=== PATIENT | female | born 1965 | race Caucasian/White ===

== ENCOUNTER 2021-08-12 10:35 | Outpatient (REF) | payer OTHER, SELFPAY ==
[2021-08-12 10:55] LABS: MANUAL DIFF FLAG NO
[2021-08-12 11:31] LABS: Basophils Percent Auto 0.7 % (0-2); Eosinophils Absolute Auto 0.1 X10*3/uL (0.0-0.4); Eosinophils Percent Auto 0.8 % (0-4); Hematocrit 41.6 % (37.0-47.0); Hemoglobin 14.2 g/dl (12.0-16.0); Imm Gran Abs Auto 0.02 X10*3/uL (0.00-0.03); Imm Gran Pct Auto 0.3 % (0.0-0.4); Lymphocytes Absolute Auto 1.4 X10*3/uL (1.2-4.9); Lymphocytes Percent Auto 23.8 % (20-40); Mean Corpuscular HGB Conc 34.1 g/dl (31.0-35.0); Mean Corpuscular Hemoglobin 31.7 pg (27.0-33.0); Mean Corpuscular Volume 92.9 fL (80.0-98.0); Mean Platelet Volume 9.5 fL (9.4-12.3); Monocytes Absolute Auto 0.6 X10*3/uL (0.1-1.2); Monocytes Percent Auto 9.4 % (2-11); Neutrophils Absolute Auto 3.9 x10*3/uL (2.0-8.3); Platelet Count 424 X10*3/uL (160-400); Red Blood Count 4.48 X10*6/uL (4.20-5.50); Red Cell Distribution Width 12.2 % (11.0-16.0)
[2021-08-12 11:52] LABS: Alanine Aminotransferase 12 U/L (0-31); Albumin Level 4.6 g/dL (3.5-5.0); Alkaline Phosphatase 81 U/L (39-117); Anion Gap 14 (12-20); Aspartate Amino Transferase 15 U/L (5-31); Bilirubin Total 0.9 mg/dL (0.0-1.0); Blood Urea Nitrogen 10 mg/dL (9-16); Calcium 9.6 mg/dL (8.4-10.2); Carbon Dioxide 29 mmol/L (22-29); Chloride 101 mmol/L (96-108); Cholesterol 189 mg/dL; Estimated Glomerular Filt Rate > 60; Glucose Fasting 104 mg/dL (60-99); HDL Cholesterol 64 mg/dL; LDL Cholesterol Calculated 113 mg/dl; Sodium 140 mmol/L (135-145); Total Protein 7.6 g/dL (6.5-8.0); Triglycerides 60 mg/dL
[2021-08-12 12:13] LABS: Vitamin D 25-OH Total 19.7 ng/mL (>30)
== END 2021-08-12 10:36 | disposition home or self-care (01) ==
LOC: HO.LAB 10:35
PROVIDERS: PCP Internal Medicine; Visit Provider Internal Medicine
DX: Z00.00 Encounter for general adult medical examination without abnormal findings (principal)
CPT/HCPCS: 36415; 80053; 80061; 82306; 85025

== ENCOUNTER 2021-08-31 14:11 | Outpatient (REF) | payer OTHER, SELFPAY ==
--- NOTE | ~2021-08-31 | MM_ITS ---
EXAMINATION: MM SCREENING DIGITAL BREAST TOMOSYNTHESIS, BILATERAL CLINICAL INFORMATION: Screening. Asymptomatic. The lifetime risk of breast cancer based on the Tyrer-Cuzick Model is 16%. COMPARISON: [place]). TECHNIQUE: Digital breast tomosynthesis is performed in both the craniocaudal and mediolateral oblique views along with computer-aided detection (CAD). Synthesized 2D images are generated from the tomosynthesis. FINDINGS: The breasts are heterogeneously dense, which may obscure small masses (ACR BI-RADS breast composition Category c). There are no significant masses, abnormal calcifications, or other abnormalities. Breast tissue composition borders on average fibroglandular. There is no architectural abnormality. The axilla and skin contours are unremarkable. MM/MM tomosynthesis screening BI IMPRESSION: No mammographic evidence of malignancy. ASSESSMENT: BI-RADS 1: Negative RECOMMENDATION: Routine annual mammography screening. This patient's information was entered into a reminder system with a target due date for their next mammogram.
--- NOTE | ~2021-08-31 | MM_ITS ---
EXAMINATION: BONE DENSITOMETRY CLINICAL INDICATION: Menopause. COMPARISON: This is the patient's baseline examination. TECHNIQUE: Using a [employer] DXA System (software version: 13.1) manufactured by [employer], dual-energy x-ray absorptiometry was performed of the lumbar spine and left hip. The images are of good technical quality. Summary results are attached. FINDINGS: AP SPINE L1-L3 (excluding L4): The data of L1-L4 has been changed to exclude the L4 vertebral body, because degenerative changes at this level may cause overestimation of lumbar spine density. BMD 0.895 g/cm2, Z-score -1.0, T-score -2.3, osteopenia. LEFT FEMUR, NECK: BMD 0.866 g/cm2, Z-score 0.1, T-score -1.2, osteopenia. LEFT FEMUR, TOTAL: BMD 0.847 g/cm2, Z-score -0.3, T-score -1.3, osteopenia. IDENTIFIED RISK FACTORS: Menopause. HISTORY OF FRACTURE: None listed. MEDICATIONS: Calcium supplements or multivitamin, vitamin D. MM/XR DEXA axial skeleton IMPRESSION: 1. DIAGNOSIS: Osteopenia based on the lowest T-score value of -2.3 in the lumbar spine applying World Health Organization criteria. 2. 10-YEAR FRACTURE RISK PREDICTION, FRAX: Major osteoporotic fracture (clinical spine, forearm, hip or shoulder) 6.9%. Hip fracture 0.5%. 3. Treatment Recommendations: NOF guidelines recommend consideration for treatment in postmenopausal women and men age 50 and older presenting with the following: -A hip or vertebral (clinical or morphometric) fracture. -T-score less than or equal to -2.5 at the femoral neck or spine after appropriate evaluation to exclude secondary causes. -Low bone mass at the hip or spine and a 10-year fracture probability by FRAX of greater than or equal to 3% for hip fracture or greater than or equal to 20% for major osteoporotic fracture based on the [place] adapted WHO algorithm. 4. Other Recommendations: All treatment decisions require clinical judgment and consideration of individual patient factors, including patient preferences, comorbidities, previous drug use, risk factors not captured in the FRAX model (e.g. frailty, falls, vitamin D deficiency, increased bone turnover, interval significant decline in bone density) and possible under or overestimation of fracture risk by FRAX. Additional medical evaluation for secondary cause of low bone mineral density may be appropriate. FUTURE SCAN RECOMMENDATION: People with diagnosed cases of osteoporosis or at high risk for fracture should have regular bone mineral density tests. For patients eligible for Medicare, routine testing is allowed once every 2 years. The testing frequency can be increased to one year for patients who have rapidly progressing disease, those who are receiving or discontinuing medical therapy to restore bone mass, or have additional risk factors.
== END 2021-08-31 14:12 | disposition home or self-care (01) ==
LOC: HO.MAMMO 14:11
PROVIDERS: PCP Internal Medicine; Visit Provider Internal Medicine
DX: Z12.31 Encounter for screening mammogram for malignant neoplasm of breast (principal); Z13.820 Encounter for screening for osteoporosis; Z78.0 Asymptomatic menopausal state
CPT/HCPCS: 77063; 77067; 77080

== ENCOUNTER → 2022-06-14 09:50 | Outpatient (BNVA) | payer OTHER, SELFPAY | PROVIDERS: PCP Internal Medicine; Visit Provider Orthopaedic Surgery | DX: G56.01 Carpal tunnel syndrome, right upper limb (principal) ==

== ENCOUNTER 2022-08-04 12:12 | Day surgery (SDC) | payer OTHER, SELFPAY ==
[2022-08-04 14:08] VITALS: BMI 23.9
--- NOTE | 2022-08-04 15:03 | MHC.SHP ---
Pre-Procedural Eval Section A Date of Service: 08/04/22 The patient is an INPATIENT: No Changes since office visit: No Cold of Flu in the past 2 weeks, No New Medical Problems, No Changes in Medication and No Patient answered all questions The History & Physical has been completed within 30 days and I have reviewed it.: Yes Section B Chief Complaint: Carpal tunnel syndrome, right upper limb Allergies: Allergies Allergy/AdvReac Type Severity Reaction Status Date / Time Penicillins Allergy hives Verified 06/14/22 10:01 Plan I have reviewed the history and physical and performed a pertinent physical examination on my patient. No changes have occurred unless specified. Time Spent With Patient Time: Total time managing care of this patient today ____ minutes.
--- NOTE | 2022-08-04 15:04 | W.PM.OPN ---
Operative Note Operative Note Date of Service: 08/04/22 Narrative: Preop diagnosis: 1. Right Carpal tunnel syndrome Postop diagnosis: same Procedure: 1. Right Carpal tunnel release Surgeon: Kaya Carcamo MD Anesthesia: local block using 1% lidocaine with epinephrine Findings: Thickened transverse carpal ligament. EBL: Less than 5 mL Specimens: None Complications: None Disposition: Brought to recovery room in stable condition Plan: Follow-up for 10-14 days for wound check and suture removal Indications: The patient is 57 years old, with right carpal tunnel syndrome that has been unresponsive to nonoperative management. The risks and benefits of operative treatment including but not limited to risk of damage to blood vessels, nerves, tendons, infection, persistent pain, persistent symptoms, or possible need for additional surgery were discussed with the patient and the patient wishes to proceed with surgery. Procedure: Once consent was obtained a local block was performed using a combination of 1% lidocaine with epinephrine. The patient was then brought back to the operating suite and placed on the operative table in supine position. The right upper extremity was prepped and draped in a standard surgical fashion. Once assured that we had a good block, a 2.0 cm longitudinal incision was made centered over the carpal tunnel. The incision was made through the skin to the subcutaneous tissues using a #15 blade. Dissection was made down to the level of the transverse carpal ligament with care being taken to protect the palmar cutaneous nerve. Once the transverse carpal ligament was clearly visualized, a longitudinal incision was made in the transverse carpal ligament 1st using a #15 blade, then using tenotomy scissors under direct visualization. Care was taken to look for and protect the motor branch of the median nerve when seen in this area. Once satisfied with our carpal tunnel release the wound was copiously irrigated with normal saline and hemostasis was obtained with a brief period of local pressure. The skin edges were reapproximated with some 5.0 nylon suture material and a sterile dressing was applied. The patient appears to have tolerated the procedure well and with no complications. All digits were well vascularized at the conclusion of the case.
[2022-08-04 15:46] VITALS: BP 155/86; PULSE 100; RESP 16; TEMP 37.4; O2SAT 95
== END 2022-08-04 16:11 | disposition home or self-care (01) ==
PROVIDERS: PCP Internal Medicine; Visit Provider Orthopaedic Surgery
PROC: (CPT 64721; principal; 2022-08-04 14:20)
DX: G56.01 Carpal tunnel syndrome, right upper limb (principal); R20.0 Anesthesia of skin; R20.2 Paresthesia of skin; Z88.0 Allergy status to penicillin; G20 Parkinson's disease; G24.9 Dystonia, unspecified; Z87.891 Personal history of nicotine dependence
CPT/HCPCS: 64721; J0171

== ENCOUNTER → 2022-08-17 09:46 | Outpatient (BNVA) | payer OTHER, SELFPAY | PROVIDERS: PCP Internal Medicine; Visit Provider Physician Assistant | DX: Z13.89 Encounter for screening for other disorder (principal) ==

== ENCOUNTER 2022-10-03 10:09 | Outpatient (REF) | payer OTHER, SELFPAY ==
--- NOTE | ~2022-10-03 | MM_ITS ---
EXAMINATION: MM SCREENING DIGITAL BREAST TOMOSYNTHESIS, BILATERAL CLINICAL INFORMATION: Screening. Asymptomatic. The lifetime risk of breast cancer based on the Tyrer-Cuzick Model is 18.3%. COMPARISON: Mammography: August 31, 2021 and studies dating back to December 14, 2018 TECHNIQUE: Digital breast tomosynthesis is performed in both the craniocaudal and mediolateral oblique views along with computer-aided detection (CAD). Synthesized 2D images are generated from the tomosynthesis. FINDINGS: The breasts are heterogeneously dense, which may obscure small masses (ACR BI-RADS breast composition Category c). There are no significant masses, abnormal calcifications, or other abnormalities. MM/MM tomosynthesis screening BI IMPRESSION: No significant changes from prior exam. ASSESSMENT: BI-RADS 1: Negative RECOMMENDATION: Routine annual mammography screening. This patient's information was entered into a reminder system with a target due date for their next mammogram.
== END 2022-10-03 10:10 | disposition home or self-care (01) ==
LOC: HO.MAMMO 10:09
PROVIDERS: PCP Internal Medicine; Visit Provider Internal Medicine
DX: Z12.31 Encounter for screening mammogram for malignant neoplasm of breast (principal)
CPT/HCPCS: 77063; 77067

== ENCOUNTER 2023-03-28 16:49 | Emergency (ER) | payer OTHER, SELFPAY ==
[2023-03-28 18:09] VITALS: BP 149/78; PULSE 97; RESP 16; TEMP 37.6; O2SAT 100; BMI 25.0
--- NOTE | 2023-03-28 18:10 | ED.SKABFB ---
HPI - Skin/Abscess/Foreign Bdy General Chief complaint: Fall Stated complaint: Laceration on forehead Time Seen by Provider: 03/28/23 19:30 Source: patient Mode of arrival: ambulatory Limitations: no limitations History of Present Illness HPI narrative: Patient is a 57-year-old female who presents emergency department with her sister for evaluation after head injury. Reportedly at approximately 06:00 o'clock this morning she accidentally tripped over her cats and struck her head against the corner of a wall. She denies any loss of consciousness. She endorsed a mild headache earlier today which has resolved. She is unaware of the date of her last tetanus vaccination. She sustained a laceration to the midline of her forehead. Bleeding is currently controlled. She denies the use of anticoagulants. She denies current headache, neck pain, vision changes, dizziness, lightheadedness, numbness or tingling of the extremities, weakness Related Data Home Medications Medication Instructions Recorded Confirmed carbidopa 25 mg tablet 25 mg PO BID 06/14/22 carbidopa 25 mg-levodopa 100 mg 2 tab PO BID 06/14/22 tablet gabapentin 300 mg capsule 300 mg PO BEDTIME 06/14/22 pramipexole 0.5 mg tablet mg PO 06/14/22 selegiline HCl 5 mg tablet 5 mg PO BID 06/14/22 Previous Rx's Medication Instructions Recorded oxycodone-acetaminophen 5 mg-325 1 tab PO Q6H PRN pain #5 tabs 08/04/22 mg tablet Allergies Allergy/AdvReac Type Severity Reaction Status Date / Time Penicillins Allergy hives Verified 06/14/22 10:01 Review of Systems Review of Systems: Yes all other systems are reviewed and are negative [facility] Past Medical History Attestation statement: The following information was validated with the patient. Source: old records reviewed Medical History Parkinsons disease Social History Social History Patient Tobacco Use Status: Former Tobacco user Advance Directives: No Advance Directives Information Provided: No Current occupation: preschool, rt hand Physical Exam Vital Signs: Vital Signs: Last Vital Signs Temp 98.8 F 03/28/23 19:07 Pulse 90 03/28/23 19:07 Resp 18 03/28/23 19:07 BP 145/71 H 03/28/23 19:07 Pulse Ox 98 03/28/23 19:07 O2 Del Method Room Air 03/28/23 19:07 BMI result Body Mass Index 25.0 Appearance: Alert.?Oriented to person, place and time. No acute distress.?Normal affect. Eyes: Pupils equal, round and reactive to light.? EOMI. No nystagmus. ENT: Pharynx normal.??TM normal bilaterally. Normal dentition. No septal hematoma. Neck: Normal inspection.? Neck supple.??No cervical spine tenderness, step-offs, deformities. CVS: Heart sounds normal. Normal heart rate and rhythm.? Pulses normal.?? Respiratory: No respiratory distress.? Lung sounds clear to auscultation bilaterally?? Abdomen: Soft and non-tender. Normoactive bowel sounds.? Skin: Skin warm and dry.? Normal skin color.? Extremities: No lower extremity edema.? 3.5 cm linear laceration to the mid forehead extending down from the scalp, bleeding controlled, edges are well approximated Neuro: Moves all extremities spontaneously. Sensation intact bilaterally. CN II-XII intact. No focal neuro deficits. Ambulates with baseline gait/unsteadiness secondary to Parkinson's Course Course Course Narrative: This is an RME: Additional HPI, ROS, PE not included below will be deferred to primary provider. This is a [id number], with a history of Parkinson's, presenting to the emergency department, accompanied by sister, with a complaint of head strike which occurred at 6:00 a.m. this morning. Patient reports that she was causing my cats and tripped and struck her head on to the corner of a wall. This head strike was unwitnessed, she denies any loss of consciousness. Patient unsure when her last tetanus was. Patient 3.5 cm partial thickness laceration to the forehead Plan: CT head, tdap, wound repair Medications Administered Discontinued Medications Generic Name Dose Route Start Last Admin Trade Name Freq PRN Reason Stop Dose Admin Diphtheria/Tetanus/Acell Pertussis 0.5 ml 03/28/23 18:16 03/28/23 19:33 Diphth,Pertus(Acell),Tet Adult 0.5 Ml Syringe IM 03/28/23 18:17 0.5 ml .ONCE ONE Administration Medical Decision Making Medical Decision Making [facility] Narrative: Patient is a 57-year-old female presenting to emergency department for evaluation of laceration s/p head injury without loss of consciousness. She has no focal neurological deficits upon my evaluation. A CT scan was obtained prior to my assessment which reveals no acute intracranial abnormalities. She has no midline cervical spine tenderness to suggest possible fracture traumatic subluxation. Her wound was cleansed extensively, the edges are very well approximated without applying any pressure. I discussed with patient repair with sutures for closure, she feels strongly about not having sutures. Given that the edges do approximate very well even without pressure, I did discuss with her alternatively that we could use skin adhesive and Steri-Strips as she is declining sutures. She agrees with that plan of care. Both her and her sister feel comfortable with discharge home. Discussed worrisome signs and symptoms that would warrant re-evaluation in the emergency department. Advised outpatient follow-up with primary care provider. All questions answered. Stable for discharge. Differential Diagnosis Differential Diagnoses: The differential diagnosis associated with the presentation includes (Fracture, subluxation, SDH, ICH, laceration, uncontrolled bleeding) Admission/Observation Consideration of admission/observation: Escalation of care including admission/observation considered (I considered admission for head injury, see narrative above for further detail.) Radiology Impression Discussion of test interpretation with radiology: I have reviewed the radiologist's reading. Radiologist Impression: CT/CT head/brain wo IV con IMPRESSION: No acute intracranial pathology. Independent Historian Clinical information obtained from an independent historian. History obtained from or confirmed by: Other (Sister present at bedside who confirms history.) External Record Review External record reviewed: Outpatient record Prescription Management I considered prescription management with: Pain Medication (Acetaminophen) Chronic Conditions Patient?s care impacted by: Other (Parkinson's) Discharge Plan Discharge Clinical Impression: Acute head injury without loss of consciousness, Forehead laceration Patient Disposition: Home, Self-Care Instructions: Skin Adhesive Care (ED), Steristrips (ED) Prescriptions: No Action oxycodone-acetaminophen 5-325 mg tablet 1 tab PO Q6H PRN (Reason: pain) Qty: 5 0RF Rx Instructions: Partial Fill upon patient request. carbidopa 25 mg tablet 25 mg PO BID pramipexole 0.5 mg tablet PO gabapentin 300 mg capsule 300 mg PO BEDTIME carbidopa-levodopa 25-100 mg tablet 2 tab PO BID selegiline HCl 5 mg tablet 5 mg PO BID Referrals: Physician,Unknown J [Primary Care Provider] -
[2023-03-28 19:07] VITALS: BP 145/71; PULSE 90; RESP 18; TEMP 37.1; O2SAT 98
== END 2023-03-28 21:50 | disposition home or self-care (01) ==
PROVIDERS: Emergency Provider Emergency Medicine
DX: S00.81XA Abrasion of other part of head, initial encounter (principal); R51.9 Headache, unspecified; W01.10XA Fall on same level from slipping, tripping and stumbling with subsequent striking against unspecified object, initial encounter; Y93.9 Activity, unspecified; Y92.009 Unspecified place in unspecified non-institutional (private) residence as the place of occurrence of the external cause; Y99.9 Unspecified external cause status; Z79.899 Other long term (current) drug therapy; Z23 Encounter for immunization
CPT/HCPCS: 12052; 70450; 90471; 90715; 99282; 99284

== ENCOUNTER 2023-08-08 11:41 | Outpatient (REF) | payer OTHER, SELFPAY ==
[2023-08-08 13:26] LABS: MANUAL DIFF FLAG NO
[2023-08-08 13:38] LABS: Basophils Absolute Auto 0.1 X10*3/uL (0.0-0.2); Basophils Percent Auto 0.9 % (0-2); Eosinophils Absolute Auto 0.1 X10*3/uL (0.0-0.4); Eosinophils Percent Auto 1.6 % (0-4); Hematocrit 40.7 % (37.0-47.0); Hemoglobin 13.5 g/dl (12.0-16.0); Imm Gran Abs Auto 0.01 X10*3/uL (0.00-0.03); Imm Gran Pct Auto 0.1 % (0.0-0.4); Lymphocytes Absolute Auto 1.5 X10*3/uL (1.2-4.9); Lymphocytes Percent Auto 19.5 % (20-40); Mean Corpuscular HGB Conc 33.2 g/dl (31.0-35.0); Mean Corpuscular Hemoglobin 31.8 pg (27.0-33.0); Mean Corpuscular Volume 95.8 fL (80.0-98.0); Mean Platelet Volume 9.1 fL (9.4-12.3); Monocytes Absolute Auto 0.6 X10*3/uL (0.1-1.2); Monocytes Percent Auto 8.2 % (2-11); Neutrophils Absolute Auto 5.3 x10*3/uL (2.0-8.3); Neutrophils Percent Auto 69.7 % (45-73); Platelet Count 461 X10*3/uL (160-400); Red Blood Count 4.25 X10*6/uL (4.20-5.50); Red Cell Distribution Width 12.5 % (11.0-16.0); White Blood Count 7.6 X10*3/uL (4.8-10.8)
[2023-08-08 14:13] LABS: Alanine Aminotransferase < 5 U/L (0-31); Albumin Level 4.4 g/dL (3.5-5.0); Alkaline Phosphatase 74 U/L (39-117); Anion Gap 14 (12-20); Aspartate Amino Transferase 12 U/L (5-31); Bilirubin Total 0.5 mg/dL (0.0-1.0); Blood Urea Nitrogen 16 mg/dL (9-16); Calcium 8.9 mg/dL (8.4-10.2); Carbon Dioxide 28 mmol/L (22-29); Chloride 103 mmol/L (96-108); Cholesterol 188 mg/dL (<200); Estimated Glomerular Filt Rate > 60; Glucose Random 75 mg/dL (60-115); Potassium 3.8 mmol/L (3.3-5.1); Sodium 141 mmol/L (135-145); Total Protein 7.4 g/dL (6.5-8.0)
[2023-08-08 14:15] LABS: Free T4 (Free Thyroxine) 0.95 ng/dL (0.71-1.85); Thyroid Stimulating Hormone 1.55 uIU/mL (0.32-4.0)
== END 2023-08-08 11:42 | disposition home or self-care (01) ==
LOC: HO.10HDL 11:41
PROVIDERS: Visit Provider Internal Medicine
DX: E55.9 Vitamin D deficiency, unspecified (principal); R63.5 Abnormal weight gain; G20.A1 Parkinson's disease without dyskinesia, without mention of fluctuations
CPT/HCPCS: 36415; 80053; 82306; 82465; 84439; 84443; 85025

== ENCOUNTER → 2023-10-06 10:00 | Outpatient (BNV) | payer OTHER, SELFPAY | PROVIDERS: PCP Internal Medicine; Visit Provider Radiology Diagnostic Radiology | DX: Z12.31 Encounter for screening mammogram for malignant neoplasm of breast (principal) | CPT/HCPCS: 77063; 77067 ==

== ENCOUNTER 2023-10-06 10:02 | Outpatient (REF) | payer OTHER, SELFPAY ==
--- NOTE | ~2023-10-06 | MM_ITS ---
EXAMINATION: MM SCREENING DIGITAL BREAST TOMOSYNTHESIS, BILATERAL CLINICAL INFORMATION: Screening. Asymptomatic. COMPARISON: Mammography: This study is compared with prior exams dating back to 2021. TECHNIQUE: Digital breast tomosynthesis is performed in both the craniocaudal and mediolateral oblique views along with computer-aided detection (CAD). Synthesized 2D images are generated from the tomosynthesis. FINDINGS: The breasts are heterogeneously dense, which may obscure small masses (ACR BI-RADS breast composition Category c). There are no significant masses, abnormal calcifications, or other abnormalities. MM/MM tomosynthesis screening BI IMPRESSION: No mammographic evidence of malignancy. ASSESSMENT: BI-RADS BI-RADS 1 - Negative RECOMMENDATION: Routine annual mammography screening. 1 year F/U This examination should not preclude the clinical evaluation of a suspicious palpable abnormality. This patient's information was entered into a reminder system with a target due date for their next mammogram.
== END 2023-10-06 10:03 | disposition home or self-care (01) ==
LOC: HO.MAMMO 10:02
PROVIDERS: PCP Internal Medicine; Visit Provider Internal Medicine
DX: Z12.31 Encounter for screening mammogram for malignant neoplasm of breast (principal)
CPT/HCPCS: 77063; 77067

== ENCOUNTER 2024-03-29 17:39 | Outpatient (REF) | payer OTHER, SELFPAY ==
[2024-03-29 18:08] LABS: Appearance Urine Cloudy; Color Urine Dark Yellow; Glucose Urine UA Negative (Negative); Leukocyte Esterase Urine Moderate (2+) (Negative); Nitrite Urine Positive (Negative); PH 5.5 (5.0-9.0); Specific Gravity - Urine 1.025 (1.005-1.025); UMIC TRIGGER UA YES; Urine Blood Trace (Negative); Urine Ketones Trace mg/dL (Negative); Urine Protein Trace mg/dL (Neg-Trace)
[2024-03-29 18:27] LABS: Bacteria Urine 4+ (None Seen); Calcium Oxalate Crystals Urine Present; Hyaline Casts Urine 0-2 /LPF (0-2); RBC Urine 0-2 /HPF (0-2); Squamous Epithelial Cell Urine 0-2 /HPF (0-2)
== END 2024-03-29 17:40 | disposition home or self-care (01) ==
LOC: HO.LNP 17:39
PROVIDERS: Visit Provider Internal Medicine
DX: R30.0 Dysuria (principal)
CPT/HCPCS: 81001

== ENCOUNTER 2024-04-11 14:53 | Outpatient (RCR) | payer OTHER, SELFPAY | END 2024-07-26 15:57 | disposition home or self-care (01) | LOC: HO.PT 14:53 | PROVIDERS: PCP Internal Medicine; Visit Provider Psychiatry & Neurology Neurology | DX: G20.B2 Parkinson's disease with dyskinesia, with fluctuations (principal) ==

== ENCOUNTER 2025-05-18 15:57 | Emergency (ER) | payer MEDICAID, SELFPAY ==
--- NOTE | ~2025-05-18 | CT_ITS ---
CLINICAL HISTORY: fall, trauma CT head without contrast Comparison: CT/PA/SR - CT HEAD/BRAIN WO IV CON - 03/28/23 18:33 EDT Findings: Bilateral bifrontal intra-axial neurostimulator leads extending up to the left and right thalami. No significant atrophy-like change or white matter disease. There is no sinus or mastoid fluid. The orbits are within normal limits. No skull fracture. Craniotomy sites for the aforementioned neurostimulator leads in the left and right frontal calvarium bones. IMPRESSION: 1. Interval placement of bilateral bifrontal intra-axial neurostimulator leads extending to the left and right thalami. 2. No acute intracranial findings. This document has been electronically signed by: Shane aWldrop MD on 05/18/2025 20:42:06
--- NOTE | ~2025-05-18 | CT_ITS ---
CLINICAL HISTORY: trauma, pain CT cervical spine without contrast Comparison: None provided Findings: C3-4: Grade 1 anterolisthesis C3 over C4. C5-6: Moderate to severe DJD. Mild anterior spondylosis. Mild osteopenia. No acute findings on limited view of the intracranial contents. No cervical fluid collections or masses. No consolidation or effusion at the lung apices. Right posterior temporal region subcutaneous leads x2 extending into the right soft tissue neck. IMPRESSION: 1. Grade 1 anterolisthesis of C3 over C4. 2. Moderate to severe degenerative joint disease at C5-C6 with mild anterior spondylosis. 3. Mild osteopenia. 4. No acute cervical spine findings. This document has been electronically signed by: Shane Waldrop MD on 05/18/2025 20:31:36
--- NOTE | ~2025-05-18 | XR_ITS ---
CLINICAL HISTORY: trauma, pain 3 view left shoulder Comparison: None provided Findings: Mild osteopenia. Distal left clavicular comminuted fracture, proximal to the acromial facet. No significant loss of joint space or osteophytes. No erosions. No radiopaque foreign body. IMPRESSION: 1. Distal left clavicular comminuted fracture, proximal of the acromial facet of the clavicle. 2. Mild osteopenia. This document has been electronically signed by: Shane Waldrop MD on 05/18/2025 21:02:31
--- NOTE | ~2025-05-18 | CT_ITS ---
CLINICAL HISTORY: fall worse pain over the left shoulder CT chest without contrast Comparison: None provided Findings: Calcified coronary atherosclerotic disease. Right anterior implanted neurostimulator device with 2 leads extending into the right anterior soft tissue neck. No consolidation or effusion. The visualized upper abdomen is unremarkable. Left distal clavicular fracture. Left lateral 3rd, 4th, 5th, 6th, 7th rib fractures. Mild osteopenia. IMPRESSION: 1. Left distal clavicular fracture. 2. Left lateral 3rd, 4th, 5th, 6th, and 7th rib fractures. 3. Right anterior implanted neurostimulator device with leads extending into the right anterior neck soft tissue. 4. Calcified coronary atherosclerotic disease. This document has been electronically signed by: Shane Waldrop MD on 05/18/2025 20:35:17
--- NOTE | ~2025-05-18 | CT_ITS ---
CLINICAL HISTORY: fall CT abdomen and pelvis without contrast Comparison: None provided Findings: No consolidation or effusion. Left renal of the posterior 0.2 cm nonobstructing nephrolith. No bowel obstruction, pneumoperitoneum, or pneumatosis. Calcified coronary atherosclerotic disease. Mild calcified atherosclerotic disease abdominal aorta. The appendix is within normal limits. No acute fracture. Mild osteopenia. IMPRESSION: 1. 0.2 cm nonobstructing left renal nephrolith. 2. Calcified coronary and abdominal aortic atherosclerotic disease. 3. No acute intraabdominal or pelvic pathology. This document has been electronically signed by: Shane Waldrop MD on 05/18/2025 20:32:56
[2025-05-18 16:29] VITALS: BP 97/55; PULSE 84; RESP 16; TEMP 36.4; O2SAT 97; BMI 49.8
--- NOTE | 2025-05-18 16:33 | ED.GENADULT ---
HPI - General Adult General Chief complaint: Fall Stated complaint: fell and hit head Time Seen by Provider: 05/18/25 17:06 Related Data Home Medications ?Medication ?Instructions ?Recorded ?Confirmed carbidopa 25 mg tablet 25 mg PO BID 06/14/22 carbidopa 25 mg-levodopa 100 mg 2 tab PO BID 06/14/22 tablet gabapentin 300 mg capsule 300 mg PO BEDTIME 06/14/22 pramipexole 0.5 mg tablet mg PO 06/14/22 selegiline HCl 5 mg tablet 5 mg PO BID 06/14/22 Previous Rx's ?Medication ?Instructions ?Recorded oxycodone-acetaminophen 5 mg-325 1 tab PO Q6H PRN pain #5 tabs 08/04/22 mg tablet Allergies Allergy/AdvReac Type Severity Reaction Status Date / Time Penicillins Allergy hives Verified 05/18/25 16:36 [facility] Past Medical History Medical History Parkinsons disease Social History Social History Patient Tobacco Use Status: Former Tobacco user Smoked in Last 30 Days: No Use of substances other than those prescribed or required for medical reasons: No Advance Directives: Yes Advance Directives Information Provided: No Advance Directives on File: No Patient : No Current occupation: preschool, rt hand Physical Exam ED Vital Signs: Vital Signs - 24 hr 05/18/25 16:29 05/18/25 17:55 05/18/25 20:05 Temperature 97.5 F 97.6 F 98.1 F Pulse Rate 84 87 90 Respiratory Rate 16 16 16 Blood Pressure 97/55 L 128/66 147/80 H Pulse Oximetry 97 97 97 Oxygen Delivery Method Room Air Room Air Room Air BMI result Body Mass Index 49.8 Course Course Course Narrative: Medical screening exam performed. Please refer to detailed history, exam, evaluation, and management by primary provider. Limited exam, family at bedside. Patient fell down 7 stairs. Struck head. No LOC. Check labs and imaging. cervical collar placed. Medications Administered Discontinued Medications Generic Name Dose Route Start Last Admin Trade Name Freq PRN Reason Stop Dose Admin Sodium Chloride 1,000 mls @ 999 mls/hr 05/18/25 19:45 05/18/25 20:16 Ns IV 05/18/25 20:45 999 mls/hr .Q1H1M JOSE GUADALUPE Administration Medical Decision Making Medical Decision Making MDM Narrative: Please see the other medical record Lab Data 05/18/25 17:07 05/18/25 17:07 Labs: Lab Results 05/18/25 05/18/25 Range/Units 17:07 19:53 WBC 20.3 H (4.8-10.8) X10*3/uL RBC 4.00 L (4.20-5.50) X10*6/uL Hgb 12.6 (12.0-16.0) g/dl Hct 37.6 (37.0-47.0) % MCV 94.0 (80.0-98.0) fL MCH 31.5 (27.0-33.0) pg MCHC 33.5 (31.0-35.0) g/dl RDW 14.6 (11.0-16.0) % Plt Count 373 (160-400) X10*3/uL MPV 9.8 (9.4-12.3) fL Immature Gran % (Auto) 0.6 H (0.0-0.4) % Neut % (Auto) 91.4 H (45-73) % Lymph % (Auto) 2.1 L (20-40) % Scre[place] % (Auto) 5.6 (2-11) % Eos % (Auto) 0.0 (0-4) % Baso % (Auto) 0.3 (0-2) % Lymph # (Auto) 0.4 L (1.2-4.9) X10*3/uL Screven # (Auto) 1.1 (0.1-1.2) X10*3/uL Eos # (Auto) 0.0 (0.0-0.4) X10*3/uL Baso # (Auto) 0.1 (0.0-0.2) X10*3/uL Abs Immat Gran (auto) 0.13 H (0.00-0.03) X10*3/uL Absolute Neuts (auto) 18.5 H (2.0-8.3) x10*3/uL Absolute Nucleated RBC 0.000 (0.0-0.012) X10*3/uL Nucleated RBC % (auto) 0.0 (0.0-0.2) /100WBC Smear Tech's Comments VERIFIED Sodium 143 (135-145) mmol/L Potassium 3.7 (3.3-5.1) mmol/L Chloride 106 (96-108) mmol/L Carbon Dioxide 26 (22-29) mmol/L Anion Gap 15 (12-20) BUN 18 H (9-16) mg/dL Creatinine 0.59 (0.5-1.4) mg/dL Estim Creat Clear Calc 142.9 Estimated GFR > 60 Random Glucose 103 (60-115) mg/dL Lactic Acid 0.8 (0.5-2.0) mmol/L Calcium 9.2 (8.4-10.2) mg/dL Total Bilirubin 0.6 (0.0-1.0) mg/dL AST 25 (5-31) U/L ALT < 6 (0-31) U/L Alkaline Phosphatase 85 (39-117) U/L Total Protein 6.8 (6.5-8.0) g/dL Albumin 4.5 (3.5-5.0) g/dL Discharge Plan Discharge Clinical Impression: Head injury, Closed rib fracture, Clavicle fracture Patient Disposition: [facility] Transfer Details: [facility] Prescriptions: No Action oxycodone-acetaminophen 5-325 mg tablet 1 tab PO Q6H PRN (Reason: pain) Qty: 5 0RF Rx Instructions: Partial Fill upon patient request. carbidopa 25 mg tablet 25 mg PO BID pramipexole 0.5 mg tablet PO gabapentin 300 mg capsule 300 mg PO BEDTIME carbidopa-levodopa 25-100 mg tablet 2 tab PO BID selegiline HCl 5 mg tablet 5 mg PO BID Print Language: Pashto
--- NOTE | 2025-05-18 16:35 | ECG_ITS ---
Test Reason : FALL Blood Pressure : */* mmHG Vent. Rate : 82 BPM Atrial Rate : 82 BPM P-R Int : 164 ms QRS Dur : 94 ms QT Int : 404 ms P-R-T Axes : 62 -9 21 degrees QTcB Int : 472 ms Normal sinus rhythm Incomplete right bundle branch block Borderline ECG No previous ECGs available Referred By: Fausto Oshea Electronically Signed By: KASI SALAS
--- NOTE | 2025-05-18 16:39 | PC.NURSE ---
Pt collared in triage and brought into ED2 placed on monitor at this time
[2025-05-18 17:18] LABS: Hematocrit 37.6 % (37.0-47.0); Hemoglobin 12.6 g/dl (12.0-16.0); Imm Gran Abs Auto 0.13 X10*3/uL (0.00-0.03); Imm Gran Pct Auto 0.6 % (0.0-0.4); Lymphocytes Absolute Auto 0.4 X10*3/uL (1.2-4.9); MANUAL DIFF FLAG SCAN; Mean Corpuscular HGB Conc 33.5 g/dl (31.0-35.0); Mean Corpuscular Hemoglobin 31.5 pg (27.0-33.0); Mean Corpuscular Volume 94.0 fL (80.0-98.0); NRBC Abs Auto 0.000 X10*3/uL (0.0-0.012); NRBC Pct Auto 0.0 /100WBC (0.0-0.2); Platelet Count 373 X10*3/uL (160-400); Red Blood Count 4.00 X10*6/uL (4.20-5.50); SCAN SMEAR FLAG 1; White Blood Count 20.3 X10*3/uL (4.8-10.8)
--- OUTSIDE RECORDS SUMMARY | 2025-05-18 17:21 | XMS_ITS | Encounter Summary ---
Author Organization [facility] Address [address] [place] [address] Care Team Providers Care Lace Sewer Name Role Phone Zuleyka Moreno MD Primary Care Provider [phone] Encounter Details Date Type Department Care Team (Late st Contact Info) Description 08/12/2024 Telephone [facility] [address] [place] [address] Benito Edward MD [address] [place] [address] Social History Tobacco Use Types Packs/Day Years Used Date Smoking Tobacco: Former Cigarettes Smokeless Tobacco: Never Comments:Smokes in 20s Alcohol Use Standard Drinks/Week Comments Not Currently 0 (1 standard drink = 0.6 oz pur e alcohol) occassional Comments No Sex and Gender Information Value Date Recorded Sex Assigned at Female 04/07/2023 11:19 AM EDT Legal Sex Female 4:28 PM EDT Gender Identity Female 04/07/2023 11:19 AM EDT Sexual Orientation Choose not to disclose 2022 11:19 AM EDT documented as of this encounter Miscellaneous Notes * Telephone Encounter - Abby Ochoa - 08/12/2024 8:15 AM EST Called pt and informed her that [facility] does not accept [facility] documented in this encounter Plan of Treatment Upcoming Encounters Date Type Department Care Team (Late st Contact Info) Description 06/24/2025 10:00 AM EST Office Visit [facility] [address] [place] [id number] Arminda Newsome NP [address] [place] [id number] 10/16/2025 10:30 AM EDT Procedure visit [facility] [address] [place] [id number] Benito Edward MD [address] [place] [id number] documented as of this encounter Visit Diagnoses Not on filedocumented in this encounter Care Teams Lace Sewer Relationship Specialty Start Date End Date Zuleyka Moreno MD [address] [place] [phone] PCP - General 03/17/25 documented as of this encounter
--- OUTSIDE RECORDS SUMMARY | 2025-05-18 17:21 | XMS_ITS | Encounter Summary ---
Author Organization [facility] Address [address] [place] [address] Care Team Providers Care Business Planner Name Role Phone Zuleyka Moreno MD Primary Care Provider [phone] Encounter Details Date Type Department Care Team (Late st Contact Info) Description 03/19/2025 [email or web address] Message [facility] Financial Clearance Department [address] [place] [address] Mozilla, Generic Provider [address] [place], [place] [id number] Pharmacy Auth Status Social History Tobacco Use Types Packs/Day Years [...] AM EDT documented as of this encounter Plan of Treatment Upcoming Encounters Date Type Department Care Team (Late st Contact Info) Description 06/24/2025 10:00 AM EST Office Visit [facility] [address] [place], [place] [phone] Arminda Newsome NP [address] [place] [address] 10/16/2025 10:30 AM EDT Procedure visit [facility] [address] [place] [address] [phone] Benito Edward MD [address] [place] [address] [phone] documented as of this encounter Visit Diagnoses Not on filedocumented in this encounter Care Teams Business Planner Relationship Specialty Start Date End Date Zuleyka Moreno MD [address] [place] [phone] PCP - General 03/17/25 documented as of this encounter
--- OUTSIDE RECORDS SUMMARY | 2025-05-18 17:21 | XMS_ITS | Patient Health Record ---
Author Organization [facility] Address [address] [place] [address] Care Team Providers Care Marketing Writer Name Role Phone Nick Marshall MD Primary Care Provider Bjorn Celeste Unavailable [phone] Allergies Allergen (clinical drug ingredient) Drug/Non Drug Allergy documented on EMR Reaction Allergy Type Onset Date Status Information temporarily unavailable Penicillin Unknown Drug Allergy Active Reason For Referral No Information Medications Medication SIG (Take, Route, Frequency, Duration) Notes Start Date End Date Status Carbidopa 25 MG 1 tablet Orally Active Selegiline Active Carbidopa 25 MG 1 tablet Orally Thre e times a day; Duration: 30 day(s) Active Voltaren 1 % as directed Externally 01/21/2022 Active Carbidopa-Levodopa 25-100 MG 1 tablet as needed Orally Two times a Week; Duration: 30 day(s) Active Carbidopa-Levodopa 25-100 MG 1 tablet Orally Active Selegiline Active Social History Tobacco Use: Social History Observation Description Date Details (start date - stop date) Former Smoker NA - NA Tobacco Use/Smoking Question Answer Notes Are you a: former smoker Alcohol Screen Question Answer Notes Did you have a drink containing alcohol in the p ast year? Yes Points 0 Interpretation Negative Tobacco use other than smoking: Question Answer Notes Are you an other tobacco user? No Problems Problem Type SNOMED Code ICD Code Onset Dates Problem Status W/U Status Risk Notes Problem Information temporarily unavailable Hallux rigidus, left foot (M20.22) Active confirmed Problem Information temporarily unavailable Parkinson disease (G20) Active confirmed Plan Of Treatment Pending Test Test Name Order Date X ray : Foot, left 3V 01/21/2022 Insurance Providers Payer Name Payer Address Payer Phone Subscriber Number Group Number Insured Name Patient Relationship to Insured Coverage Start Date Coverage End Date [facility] [address] [place] [address] [phone] [id number] Mehreen Su Self - patient is the insured Medical (General) History Medical History History ICD Code Parkinsons disease Chicken pox Surgical History Surgery Date(Month/Year)
--- OUTSIDE RECORDS SUMMARY | 2025-05-18 17:21 | XMS_ITS | Encounter Summary ---
Author Organization [facility] Address [address] [place] [address] Phone Care Team Providers Care Printing Table Worker Name Role Phone Nick Marshall MD Primary Care Provider Tadeo Wise MD Unavailable [phone] Encounter Details Date Type Department Care Team (Late st Contact Info) Description 12/10/2024 Procedure Pass [facility], Ct Scan - [address] [address] Social History Tobacco Use Types Packs/Day Years Used Date Smoking Tobacco: Never Assessed Education Answer Date Recorded Are you interested in more education? Not on kiana e 04/18/2024 Are you concerned about learning? Not on file 04/18/2024 No 04/18/2024 No 04/18/2024 Food Answer Date Recorded Within the past 6 months we worried whether our food would run out before we got money to buy more. Never True 12/10/2024 Within the past 6 months the food we bought just didn't last and we didn't have enough money to get more. Never True Residential Stability Answer Date Recor ded What is your housing situation today? I have sunshine sing 12/10/2024 How many times have you move d in the past 12 months? Zero (I did not move) 12/10/2024 Paying for Meds Answer Date Recorded Do you have trouble paying for medicines? No 12/10/2024 Paying Utility Bills Answer Date Record ed Do you have trouble paying your heating or elect ricity bill? No 12/10/2024 Transportation Answer Date Recorded Has the lack of transportati on kept you from medical appointments or from getting medications? No 12/10/2024 Digital Access Answer Date Recorded No 12/10/2024 Yes 12/10/2024 Do you have reliable internet access at home? Ye s 12/10/2024 Do you have a device (e.g., phone, tablet, computer) with a working camera? Yes 12/10/2024 Intimate Partner Violence Answer Date R ecorded Are you denied basic needs s uch as food, clothing, or medical care? No 12/10/2024 In the past 12 months have y ou been in a relationship with a person who hurts, threatens, or tries to control you? No 12/10/2024 Are you denied basic needs s uch as food, clothing, or medical care? No 12/10/2024 In the past 12 months have y ou been in a relationship with a person who hurts, threatens, or tries to control you? No 12/10/2024 Comments Unknown Sex and Gender Information Value Date Recorded Sex Assigned at Female 12/10/2024 5:29 PM EDT Legal Sex Female 12:35 PM EDT Gender Identity Female 12/10/2024 5:29 PM EDT Sexual Orientation Choose not to disclose 2024 5:29 PM EDT documented as of this encounter Functional Status * Calculated C-SSRS Risk Score (Lifetime/Recent) Answer Date of Assessment Author No Risk Indicated 12/10/2024 3:39 PM EDT Naga Robledo RN * [place] Suicide Severity Rating Scale (Screener/Recent Self-Report) Question Answer Date of Assessment Author 1. Wish to be (Past 1 Month) No 025 3:39 PM EDT Naga Robledo, DIANNE 2. Non-Specific Active Suici marcela Thoughts (Past 1 Month) No 12/10/2024 3:39 PM EDT Naga Robledo, DIANNE 6. Suicidal Behavior (Lifetime) No 3:39 PM EDT Naga Robledo, RN documented as of this encounter Plan of Treatment Not on file documented as of this encounter Visit Diagnoses Not on filedocumented in this encounter Care Teams Printing Table Worker Relationship Specialty Start Date End Date Nick Marshall MD NPI: [id number] [place] [address] [place] [address] PCP - General Internal Medicine 04/17/24 Tadeo Wise MD [address] [place] [phone] [email or web address] Insurance Assigned Provider 05/03/25 documented as of this encounter Additional Source Comments The information contained in this document represents components of the legal health record. It is not the complete legal health record.[facility]
--- OUTSIDE RECORDS SUMMARY | 2025-05-18 17:21 | XMS_ITS | Clinical Summary ---
Author Organization [facility] Address [address] [place] [address] Phone Care Team Providers Care Supervisor Park Workers Name Role Phone Nick Marshall MD Primary Care Provider Tadeo Wise MD Unavailable [phone] Allergies Active Allergy Reactions Criticality Noted Date Comments Penicillins 12/10/2024 Medications No known medications Encounters Date Type Department Care Team Description 03/17/2025 [facility] RISK SCORES SYSTEM GENERATED External System Generated Encounter [address] [place] [address] Unknown, Yessy, 02/24/2025 8:39 AM EDT - 02/24/2025 11:59 PM EDT Hospital Encounter [facility] [address] [place] [address] Zuleyka Hodgson PA Discharge Disposition: Home or Self Care from Last 3 Months Social History Tobacco Use Types Packs/Day Years [...] is your housing situation today? I have sunshineronn adame 12/10/2024 How many times have you move [...] not to disclose 2024 5:29 PM EDT Last Filed Vital Signs Vital Sign Reading Time Taken Comments Blood Pressure 138/74 12/10/2024 6:00 PM EDT Pulse 84 12/10/2024 6:00 PM EDT Temperature 36.2 C (97.2 F) 12/10/2024 6:00 PM EDT Respiratory Rate 18 12/10/2024 6:00 PM EDT Oxygen Saturation 96% 12/10/2024 6:00 PM EDT Inhaled Oxygen Concentration - - Weight 72.6 kg (160 lb) 12/10/2024 3:38 PM EDT Height - - Body Mass Index - - Plan of Treatment Health Maintenance Due Date Last Done Comments Adult Td,Tdap Booster 1965 LIPID PANEL 1963 DEPRESSION SCREENING 1975 SMOKING Hx and SMOKELESS TOB ACCO SCREENING 1976 HEPATITIS C SCREENING 1981 HIV ONE-TIME SCREENING (18-6 5 YEARS) 1981 MAMMOGRAM 2003 COLOGUARD 2008 COLONOSCOPY 2008 COLORECTAL CANCER SCREENING 2008 FIT TEST 2008 FOBT 2008 SIGMOIDOSCOPY 2008 VIRTUAL COLONOSCOPY 2008 PNEUMOCOCCAL VACCINES (50+ y ears) (1 of 1 - PCV) 2013 ZOSTER VACCINES (1 of 2) 2013 INFLUENZA VACCINE (#1) 2025 COVID-19 VACCINE (1 - 2024-2 6 season) 2025 PAP SMEAR 02/25/2028 02/24/2025 RSV VACCINE (1 - 1-dose 75+ series) 2038 HEPATITIS A VACCINES Aged Out No long er eligible based on patient's age to complete this topic HIB VACCINES Aged Out No longer eligi ble based on patient's age to complete this topic MENINGOCOCCAL VACCINES (ACWY) Aged Out No longer eligible based on patient's age to complete this topic MENINGOCOCCAL VACCINES (B) Aged Out N o longer eligible based on patient's age to complete this topic Medical Devices Not on file Procedures Procedure Name Priority Date/Time Associated Diagnosis Comments PAP TEST Routine 02/24/2025 12:00 AM EDT from Last 3 Months Results * Pap Test (02/24/2025 12:00 AM EDT) Report [address] [address] Water Gas Operator: David Hill MD L[employer]TER Cytology Report FINAL DIAGNOSIS A. PAP SMEAR (THIN PREP) CE: SPECIMEN ADEQUACY: Satisfactory for evaluation; transformation zone present. INTERPRETATION: EPITHELIAL CELL ABNORMALITY - SQUAMOUS. Atypical squamous cells of undetermined significance. Fungal organisms morphologically consistent with Tracee species. This specimen was analyzed by the automated ThinPrep Imaging System (Helios [employer]disa.) and manually rescreened by a oceanography teacher and/or pathologist. Electronically Signed Out By: MD Kiley Bills CT(ASCP) By his/her signature above, the pathologist listed as making the Final Diagnosis certifies that he/she has personally reviewed this case and confirmed or corrected the diagnosis. The Pap test is a screening test primarily for squamous cancers and precursors and has associated false-negative and false-positive results. New technologies such as liquid-based preparations may decrease but will not eliminate all false-negative results. Regular sampling and follow-up of unexplained clinical signs and symptoms are recommended to minimize false negative results. CLINICAL HISTORY Date of Last Menstrual Period: Not Provided Menstrual History: Unknown Other Clinical Conditions: Screening Pap SPECIMEN SOURCE A: PAP SMEAR (THIN PREP) CE Patient Name: MEHREEN CAVANAUGH : 1965 (Age: 59) Sex: F Institution: [facility] Location: [facility] Date of Collection: 02/24/2025 Date of Reported: 03/04/2025 13:19 Results to: Zuleyka Alvarado [facility] Final Diagnosis A. PAP SMEAR (THIN PREP) CE: SPECIMEN ADEQUACY: Satisfactory for evaluation; transformation zone present. INTERPRETATION: EPITHELIAL CELL ABNORMALITY - SQUAMOUS. Atypical squamous cells of undetermined significance. Fungal organisms morphologically consistent with Tracee species. This specimen was analyzed by the automated ThinPrep Imaging System (Helios Abdias.) and manually rescreened by a oceanography teacher and/or pathologist. [facility] Conversion Type (Conversion Source) 02/24/2025 02/27/2025 10:33 AM EDT us Zuleyka [facility] CYTOLOGY ORDERABLES Edited Res ult - Final [facility] [address] [place] [address] from Last 3 Months Insurance [facility] [place] [address] [place] [address] [place] [address] [place] [address] [place] [address] [place] [address] A[place] [facility] ACO Care Teams Supervisor Park Workers Relationship Specialty Start Date End Date Nick Marshall MD [address] [place] [address] [place] [address] PCP - General Internal Medicine 04/17/24 Tadeo Wise MD [address] [place] [phone] [email or web address] Insurance Assigned Provider 05/03/25 Additional Source Comments The information contained in this document represents components of the legal health record. It is not the complete legal health record.[facility]
--- OUTSIDE RECORDS SUMMARY | 2025-05-18 17:21 | XMS_ITS | Encounter Summary ---
Author Organization [facility] Address [address] [place] [address] Phone Care Team Providers Care Inspector Pawnshop Detail Name Role Phone Nick Marshall MD Primary Care Provider Tadeo Wise MD Unavailable [phone] Encounter Details Date Type Department Care Team (Late st Contact Info) Description 12/10/2024 Procedure Pass [facility], Ct Scan - [address] [address] Social History Tobacco Use Types Packs/Day Years [...] 3:39 PM EDT Naga Robledo RN * [place] Suicide Severity Rating Scale (Screener/Recent Self-Report) Question [...] on filedocumented in this encounter Care Teams Inspector Pawnshop Detail Relationship Specialty Start Date End Date Nick Marshall MD NPI: [id number] [place] [address] [place] [address] PCP - General Internal Medicine 04/17/24 Tadeo Wise MD [address] [place] [phone] [email or web address] Insurance Assigned Provider 05/03/25 documented as of this encounter Additional Source Comments The information contained in this document represents components of the legal health record. It is not the complete legal health record.[facility]
--- OUTSIDE RECORDS SUMMARY | 2025-05-18 17:21 | XMS_ITS | Encounter Summary ---
Author Organization [facility] Address [address] [place] [address] Care Team Providers Care Bearing Inspector Name Role Phone Zuleyka Moreno MD Primary Care Provider [phone] Reason for Visit * Reason Onset Date Comments Regarding prescription levodopa (Inbrija) 42 mg [id number]] 07/20/2023 Encounter Details Date Type Department Care Team (Late st Contact Info) Description 07/20/2023 Telephone [facility] [address] [place], [place] [phone] Benito Edward MD [address] [place], [place] [phone] Regarding prescription levodopa (Inbrija) 42 mg [id number]] Social History Tobacco Use Types Packs/Day Years Used Date Smoking Tobacco: Never Smokeless Tobacco: Never Alcohol Use Standard Drinks/Week Comments Yes 0 (1 standard drink = 0.6 oz pur e alcohol) OCC Comments Unknown Sex and Gender Information Value Date Recorded Sex Assigned at Female 04/07/2023 11:19 AM EDT Legal Sex Female 4:28 PM EDT Gender Identity Female 04/07/2023 11:19 AM EDT Sexual Orientation Choose not to disclose 2022 11:19 AM EDT documented as of this encounter Miscellaneous Notes * Telephone Encounter - Abby Don - 07/20/2023 11:15 AM EST NEURO CLINIC CALL PATIENT: Mehreen Georges NAME OF CALLER (IF OTHER THAN PATIENT) AND RELATIONSHIP TO PATIENT (SPOUSE, FAMILY, PCP, ETC): Tadeo from [facility] BEST CALL BACK PHONE NUMBER: [phone] PATIENT'S NEUROLOGIST: Dr. Edward REASON FOR CALL: Tadeo from [facility] requesting a call back regarding prescription levodopa (Inbrija) 42 mg [[id number]]. Please call Tadeo back at [phone]. BRIEF DESCRIPTION OF REASON FOR CALL: ASK PATIENT IF THIS A NEW PROBLEM OR A PRE-EXISTING CONCERN/PROBLEM (WRITE ???N?? FOR NEW OR ???P?? FOR PRE-EXISTING): UPCOMING APPOINTMENTS: Future Appointments Date Time Provider Department Center 08/03/2023 4:30 PM Benito Edward MD [facility] [place] Message will be sent to [facility]UR[facility] pool and/or NURSE NAVIGATOR. documented in this encounter Plan of Treatment Upcoming Encounters Date Type Department Care Team (Late st Contact Info) Description 06/24/2025 10:00 AM EST Office Visit [facility] [address] [place] [address] Arminda Newsome NP [address] [place] [address] 10/16/2025 10:30 AM EDT Procedure visit [facility] [address] [place] [address] Benito Edward MD [address] [place] [address] documented as of this encounter Visit Diagnoses Not on filedocumented in this encounter Care Teams Bearing Inspector Relationship Specialty Start Date End Date Zuleyka Moreno MD [address] [place] [address] PCP - General 03/17/25 documented as of this encounter
--- OUTSIDE RECORDS SUMMARY | 2025-05-18 17:21 | XMS_ITS | Encounter Summary ---
Author Organization [facility] Address [address] [place] [address] [place] [address] Phone Care Team Providers Care Firm Administrator Name Role Phone Pcp, Unknown Primary Care Provider Nick Hutton MD Primary Care Provider Tadeo Wise MD Unavailable Encounter Details Date Type Department Care Team (Latest Contact Info) Description 08/30/2023 Transcribe Orders Virtual Department [address] [place] [address] Benito Edward MD [address] [place] [phone] Dysphagia, unspecified type (Primary Dx) Social History Tobacco Use Types Packs/Day Years Used Date Smoking Tobacco: Never Assessed Education Answer Date Recorded Are you interested in more education? Not on kiana e 08/31/2023 Are you concerned about learning? Not on file 08/31/2023 No 08/31/2023 No 08/31/2023 Digital Access Answer Date Recorded No 08/31/2023 No 08/31/2023 Reliable internet access at home? Not on file 08/31/2023 Device with a working camera? Not on file Comments Unknown Sex and Gender Information Value Date Recorded Sex Assigned at Female 12/10/2024 5:29 PM EDT Legal Sex Female 12:35 PM EDT Gender Identity Female 12/10/2024 5:29 PM EDT Sexual Orientation Choose not to disclose 2024 5:29 PM EDT documented as of this encounter Plan of Treatment Not on file documented as of this encounter Visit Diagnoses Diagnosis Dysphagia, unspecified type- Primary documented in this encounter Care Teams Firm Administrator Relationship Specialty Start Date End Date Pcp, Unknown PCP - General 08/31/23 04/16/24 Nick Marshall MD [address] [place] [address] [facility] [place] [place] [address] PCP - General Internal Medicine 04/17/24 Tadeo Wise MD [address] [place] [phone] [email or web address] Insurance Assigned Provider 05/03/25 documented as of this encounter Additional Source Comments The information contained in this document represents components of the legal health record. It is not the complete legal health record.[facility]
--- OUTSIDE RECORDS SUMMARY | 2025-05-18 17:21 | XMS_ITS | Encounter Summary ---
Author Organization [facility] Address [address] [place] [address] Care Team Providers Care Whiteprinting Machine Operator Name Role Phone Zuleyka Moreno MD Primary Care Provider [phone] Encounter Details Date Type Department Care Team (Late st Contact Info) Description 11/08/2023 [employer] Message [facility] Financial Clearance Department [address] [place] [address] [employer], Generic Provider [address] [place], [place] [phone] Medication-Clonazepa m Social History Tobacco Use Types Packs/Day Years [...] Description 06/24/2025 10:00 AM EST Office Visit [facility] [address] [place] [address] Arminda Newsome NP [address] [place] [address] 10/16/2025 10:30 AM EDT Procedure visit [facility] [address] [place], [place] [phone] Benito Edward MD [address] [place], [place] [phone] documented as of this encounter Visit Diagnoses Not on filedocumented in this encounter Care Teams Whiteprinting Machine Operator Relationship Specialty Start Date End Date Zuleyka Moreno MD [address] [place] [phone] PCP - General 03/17/25 documented as of this encounter
--- OUTSIDE RECORDS SUMMARY | 2025-05-18 17:21 | XMS_ITS | Clinical Summary ---
Author Organization [facility] Address [address] [place] [address] Care Team Providers Care Ludlow Machine Operator Name Role Phone Zuleyka Moreno MD Primary Care Provider [phone] Allergies Active Allergy Reactions Criticality Noted Date Comments Penicillamine Unknown 08/26/2024 Penicillins Hives,Unknown 04/07/2023 Medications multivitamin (THERAGRAN) tablet Take 1 tablet by mouth once a day. Active TURMERIC ORAL Take 1 capsule by mouth once a day. Active acetaminophen (TYLENOL) 325 mg tablet Take 650 mg by mouth every 6 hours as needed for pain. Active chlorhexidine (PERIDEX) 0.12% solution RINSE MOUTH WITH 15ML (1 CAPFUL) FOR 30 SECONDS IN MORNING AND EVENING AFTER BRUSHING, THEN SPIT 5 Active ibuprofen (MOTRIN) 600 mg tablet SMARTSI Tablet(s) By Mouth Every 6-8 Hours PRN 5 Active senna (SENOKOT) 8.6 mg tablet Take 1 tablet every 3rd day if no sufficient bowel movement. 30 tablet 2 03/19/2025 4:44 PM EDT 5 Active carbidopa-levodopa 52.5-210 mg capsule,IR -extend rel,biphaseIndicat ions:Parkinson's disease with dyskinesia and fluctuating manifestations Take 3 capsules by mouth 2 times a day AND 2 capsules 3 times a day. (Take 3 capsules at 6AM. Take 2 capsules at 10AM. Take 3 capsules at 2PM. Take 2 capsules at 6PM and 10PM.). 360 each 2 04/24/2025 2:41 PM EST 5 026 Active gabapentin (NEURONTIN) 300 mg capsuleIndications :Parkinson's disease with dyskinesia and fluctuating manifestations Take 1 capsule (300 mg total) by mouth every night. 90 capsule 3 05/06/2025 4:32 PM EST 5 026 Active selegiline (ELDEPRYL) 5 mg tablet Take 1 tablet (5 mg total) by mouth once a day. At 10AM 90 tablet 3 03/19/2025 4:44 PM EDT 5 026 Active Active Problems Problem Noted Date Diagnosed Date Dysarthria 01/10/2025 S/P deep brain stimulator placement 09/25/2024 Parkinson's disease with dys kinesia, unspecified whether manifestations fluctuate 03/12/2024 PD (Parkinson's disease) 02/20/2024 Parkinson's disease with flu ctuating manifestations, unspecified whether dyskinesia present 01/23/2024 Parkinson's disease with dys kinesia and fluctuating manifestations 04/07/2023 Encounters Date Type Department Care Team Description 04/08/2025 Telephone [facility] [address] [place] [phone] Ashlyn Hall CPhT 03/19/2025 [facility] Message [facility] Financial Clearance Department [address] [place] [phone] Hayderhart, Generic Provider Pharmacy Auth Status 03/17/2025 10:00 AM EDT Office Visit [facility] [address] [place] [phone] Arminda Newsome NP Parkinson's disease with dyskinesia and fluctuating manifestations (HCC) (Primary Dx); Dysarthria; Slow transit constipation; S/P deep brain stimulator placement 03/08/2025 Refill [facility] [address] [place] [address] Marla Up MD Parkinson's disease with dyskinesia and fluctuating manifestations (HCC) 02/15/2025 avocarrothart Message [facility] [address] [place] [id number] Benito Edward MD Watch from Last 3 Months Immunizations Immunization Administration Dates Next Due COVID-19, Pfizer, mRNA, Biva lent Booster, PF, 30 mcg/0.3 mL dose (for age 12 y and up) 05/11/2022 Covid-19, Pfizer, mRNA, Neosho valent, PF 30 mcg/0.3 mL dose (for ages 12 and older) 08/14/2020,07/24/2020 Covid-19, Pfizer, mRNA, Neosho valent, PF, 30 mcg/0.3 mL dose, yg-sucrose (COMIRNATY)(for ages 12 and older) 10/30/2021 Influenza, Injectable, Quadrivalent, Preservativ e Free 03/03/2021 Tetanus Toxoid, Reduced Diph theria Toxoid, and Acellular Pertussis Vaccine, Adsorbed 03/28/2023 Zoster Vaccine Recombinant 06/22/2020 Family History Medical History Relation Name Comments Heart disease Father Hypertension Father Kidney disease Father Alzheimer's disease Mother Diabetes Mother Hypertension Mother Nephrolithiasis Mother Relation Name Status Comments Father Mother Social History Tobacco Use Types Packs/Day Years Used Date Smoking Tobacco: Former Cigarettes Smokeless Tobacco: Never Tobacco Cessation:Counseling Given: Not Answered Comments:Smokes in 20s Alcohol Use Standard Drinks/Week Comments Not Currently 0 (1 standard drink = 0.6 oz pur e alcohol) occassional Comments No Sex and Gender Information Value Date Recorded Sex Assigned at Female 04/07/2023 11:19 AM EDT Legal Sex Female 4:28 PM EDT Gender Identity Female 04/07/2023 11:19 AM EDT Sexual Orientation Choose not to disclose 2022 11:19 AM EDT Last Filed Vital Signs Vital Sign Reading Time Taken Comments Blood Pressure 123/75 03/17/2025 10:20 AM EDT Pulse 73 03/17/2025 10:20 AM EDT Temperature 36.6 C (97.8 F) 03/17/2025 10:17 AM EDT Respiratory Rate 16 03/17/2025 10:17 AM EDT Oxygen Saturation 97% 02/12/2025 2:06 PM EDT Inhaled Oxygen Concentration - - Weight 71 kg (156 lb 8.4 oz) 03/17/2025 10:17 AM EDT Height 154.9 cm (5' 1 ) 02/12/2025 2:06 PM EDT Body Mass Index 29.58 02/12/2025 2:06 PM EDT Plan of Treatment Upcoming Encounters Date Type Department Care Team (Late st Contact Info) Description 06/24/2025 10:00 AM EST Office Visit [facility] [address] [place] [address] Arminda Newsome NP [address] [place] [address] 10/16/2025 10:30 AM EDT Procedure visit [facility] [address] [place] [address] Benito Edward MD [address] [place] [address] Health Maintenance Due Date Last Done Comments Cervical Cancer Screening 1963 Cologuard 1963 Colon Cancer Screening 1963 Colonoscopy 1963 FOBT / Fit Test 1963 HIV Screening 1963 HPV and Pap Smear 1963 Hepatitis C Screening 1963 Pap Smear 1963 Sigmoidoscopy 1963 Pneumococcal Vaccine: 50+ Years (1 of 2 - PCV) [address] Lung Cancer Screening (Baseline) 2013 Zoster Vaccines (2 of 2) 08/17/2020 06/22/2020 Alcohol/Substance Use Screening 06/19/2024 Depression Screening and Follow-Up 06/19/2024 Social Drivers of Health Annual Screening 06/19/2024 COVID-19 Vaccine ( season) 2025 05/11/2022, 10/30/2021, 08/14/2020, Additional history exists Diabetes Screening 03/13/2027 03/13/2024, 0 02/21/2024, 01/17/2024 DTaP,Tdap,and Td Vaccines (2 - Td or Tdap) 03/28/2033 03/28/2023 RSV Vaccine (60+ years old and patients) (1 - 1-dose 75+ series) 2038 Influenza Vaccine Completed 02/24/2025, 03/03/2021 Hepatitis B Vaccines Aged Out No long er eligible based on patient's age to complete this topic Medical Devices Implanted Type Area Salon Stylist Device Identifier Shelf Expiration Date Model / Serial / Lot Kit [place]ron Hole Device Dbs - [id number] Implanted:Qty: 1 on 02/20/2024 by Claribel Curry MD PhD at [facility] Implant Left: Cranial Medtronic 07/24/2025 [id number] / / [id number] Lead Marker Bilateral Dbs Sensight 42cm - [id number] - [id number] Implanted:Qty: 1 on 02/20/2024 by Claribel Curry MD PhD at [facility] Implant Left: Cranial Medtronic 02/06/2026 [id number] / [id number] / Description:Marked Lead Lead Dbs Sensight 42cm - [id number] - [id number] Implanted:Qty: 1 on 03/12/2024 by Claribel Curry MD PhD at [facility] Implant Right: Cranial Medtronic 12/01/2025 [id number] / [id number] / Kit Giovanna Hole Device Dbs - [id number] Implanted:Qty: 1 on 03/12/2024 by Claribel Curry MD PhD at [facility] Implant Right: Cranial Medtronic 10/17/2025 [id number] / / [id number] Extension System Lead Directional Marked Dbs 60cm Sensight - [id number] - [id number] Implanted:Qty: 1 on 03/12/2024 by Claribel Curry MD PhD at [facility] Implant Right: Chest Wall Medtronic 02/05/2026 [id number] / [id number] / Extension System Lead Directional Dbs 60cm Sensight - [id number] - [id number] Implanted:Qty: 1 on 03/12/2024 by Claribel Curry MD PhD at [facility] Implant Right: Chest Wall Medtronic 02/25/2026 [id number] / [id number] / Stimulator Deep Brain Rechargeable Percept Rc - [id number] - [id number] Implanted:Qty: 1 on 03/12/2024 by Claribel Curry MD PhD at [facility] Implant Right: Chest Wall Medtronic 01/13/2026 [id number] / [id number] / Procedures * Due to [place] [employer] law, this organization might not be sharing negative HIV tests. Procedure Name Priority Date/Time Associated Diagnosis Comments BASIC METABOLIC PANEL STAT 03/13/2024 7:21 AM EDT from Last 3 Months or Most Recently Relevant to Health Maintenance Results * Due to [place] [employer] law, this organization might not be sharing negative HIV tests. * (ABNORMAL) Basic Metabolic Panel (03/13/2024 7:21 AM EDT) NA 140 135 - 145 mmol/L 03/13/2024 8:25 AM EDT [facility] K 3.5 3.5 - 5.3 mmol/L 03/13/2024 8:25 AM EDT [facility] Cl 106 98 - 107 mmol/L 03/13/2024 8:25 AM EDT [facility] CO2 24 22 - 32 mmol/L 03/13/2024 8:25 AM EDT [facility] BUN 9 7 - 23 mg/dL 03/13/2024 8:25 AM EDT [facility] Creatinine 0.38(L) 0.50 - 1.20 mg/dL 03/13/2024 8:25 AM EDT [facility] Glucose 97 65 - 99 mg/dL 03/13/2024 8:25 AM EDT [facility] Calcium 8.1(L) 8.6 - 10.5 mg/dL 03/13/2024 8:25 AM EDT [facility] Anion Gap 10 5 - 15 03/13/2024 8:25 AM EDT [facility] eGFR >90 >=60 mL/min/1 .73m2 03/13/2024 8:25 AM EDT [facility] Comment:The estimated glomer ular filtration rate (eGFR) is calculated using a new formula developed by the NKF-ASN task force to eliminate race-based correction factors. The new formula uses serum/plasma creatinine, age, and gender to determine eGFR. A value below 60mls/min might indicate kidney disease and will be flagged. For additional information, see Redmond et al, Am J Kidney Dis. 2021;79(2):268- 288, A Unifying Approach for GFR estimation: Recommendations of the NKF-ASN Task Force on Reassessing the Inclusion of Race in Diagnosing Kidney Disease . Blood Structure of peripheral vein / Unknown Venipuncture / Unknown 03/13/2024 7:21 AM EDT 03/13/2024 7:51 AM EDT Jluis [facility] LAB BLOOD ORDERABLES Fi nal Result [facility] [address] [place] [id number], from Last 3 Months or Most Recently Relevant to Health Maintenance Insurance [facility] MEDICAID [place] [id number] Advance Directives Documents on File Type Date Recorded Patient Crime Victim Specialist [facility] Care Proxy 01/17/2024 8:59 AM * Full Code (Latest Code Status on File) Date Activated Date Inactivated Comments 03/12/2024 1:25 PM 03/13/2024 3:44 PM * Full Code Date Activated Date Inactivated Comments 02/20/2024 12:47 PM 02/21/2024 3:46 PM * Full Code Date Activated Date Inactivated Comments 02/20/2024 12:38 PM 02/20/2024 12:47 PM * Full Code Date Activated Date Inactivated Comments 02/20/2024 6:15 AM 02/20/2024 12:38 PM * Full Code Date Activated Date Inactivated Comments 01/23/2024 1:54 PM 01/23/2024 9:07 PM Care Teams Ludlow Machine Operator Relationship Specialty Start Date End Date Zuleyka Moreno MD [address] [place] [id number] PCP - General 03/17/25
--- NOTE | 2025-05-18 17:23 | ED_ITS ---
HPI - Fall General Chief Complaint: Fall Stated Complaint: fell and hit head Time Seen by Provider: 05/18/25 17:06 History of Present Illness HPI Narrative: Patient is a 60-year-old female status post accidental fall. She fell down approximately 7 steps. Landed on her left side. Complaining of pain to her head. Pain to the left shoulder. Related Data Home Medications ?Medication ?Instructions ?Recorded ?Confirmed carbidopa 25 mg tablet 25 mg PO BID 06/14/22 carbidopa 25 mg-levodopa 100 mg 2 tab PO BID 06/14/22 tablet gabapentin 300 mg capsule 300 mg PO BEDTIME 06/14/22 pramipexole 0.5 mg tablet mg PO 06/14/22 selegiline HCl 5 mg tablet 5 mg PO BID 06/14/22 Previous Rx's ?Medication ?Instructions ?Recorded oxycodone-acetaminophen 5 mg-325 1 tab PO Q6H PRN pain #5 tabs // mg tablet Allergies Allergy/AdvReac Type Severity Reaction Status Date / Time Penicillins Allergy hives Verified 05/18/25 16:36 Review of Systems 2 Review of Systems: Status post fall head injury No loss of consciousness no nausea no vomiting no focal weakness that is new [facility] Past Medical History Attestation statement: The following information was validated with the patient. Medical History Parkinsons disease Social History Social History Patient Tobacco Use Status: Former Tobacco user Smoked in Last 30 Days: No Use of substances other than those prescribed or required for medical reasons: No Advance Directives: Yes Advance Directives Information Provided: No Advance Directives on File: No Patient : No Current occupation: preschool, rt hand Physical Exam 2 Exam: Exam: Appearance: Alert. Oriented to self place. Significant contusion to the left side of the face. Eyes: Pupils equal, round and reactive to light. ENT: Pharynx normal. Neck: Normal inspection. Neck supple. No lymph nodes noted. No crepitus CVS: Normal heart rate and rhythm. Pulses normal. Normal S1 and S2 Respiratory: No respiratory distress. Mild pain on palpation of the left upper chest. Pain on movement of the left shoulder. Pain on palpation of the clavicle. Abdomen: Soft and nontender. No rigidity. No distention. good BS x4 Skin: Skin warm and dry. Normal skin color. Normal skin turgor. Extremities: No lower extremity edema. Neurovascular intact to all extremities. No Lacerations. No Rash Neuro: Oriented X 3. No motor deficit. Vital Signs: Vital Signs: Last Vital Signs Temp 98.1 F 05/18/25 20:05 Pulse 90 05/18/25 20:05 Resp 16 05/18/25 20:05 BP 147/80 H 05/18/25 20:05 Pulse Ox 97 05/18/25 20:05 O2 Del Method Room Air 05/18/25 20:05 BMI result Body Mass Index 49.8 Medications Administered Discontinued Medications Generic Name Dose Route Start Last Admin Trade Name Freq PRN Reason Stop Dose Admin Sodium Chloride 1,000 mls @ 999 mls/hr 05/18/25 19:45 05/18/25 20:16 Ns IV 05/18/25 20:45 999 mls/hr .Q1H1M JOSE GUADALUPE Administration Medical Decision Making Medical Decision Making [facility] Narrative: Status post accidental fall. Patient's CT scan of the head C-spine chest abdomen pelvis was done. CT scan was positive for having a distal clavicle fracture 5 rib fractures no pneumothorax no hemothorax. The finding was discussed with [facility] trauma surgeon Dr. Jeffers agree with plan to transfer patient's O2 sat is normal patient is well-appearing. Risk and benefits of transfer explained to patient and family agree with plan Differential Diagnosis Differential Diagnoses: The differential diagnosis associated with the presentation includes Rib fracture head injury intracranial bleed C-spine fracture traumatic injury to the abdomen hemothorax pneumothorax Admission/Observation Consideration of admission/observation: Escalation of care including admission/observation considered Consult Healthcare Provider Management of the patient was discussed with: Jumpbasting Facing Baster ([facility] Trauma surgery) Lab Data [facility] Lab Attestation statement: I reviewed the patient's lab results. 05/18/25 17:07 05/18/25 17:07 Labs: Lab Results 05/18/25 05/18/25 Range/Units 17:07 19:53 WBC 20.3 H (4.8-10.8) X10*3/uL RBC 4.00 L (4.20-5.50) X10*6/uL Hgb 12.6 (12.0-16.0) g/dl Hct 37.6 (37.0-47.0) % MCV 94.0 (80.0-98.0) fL MCH 31.5 (27.0-33.0) pg MCHC 33.5 (31.0-35.0) g/dl RDW 14.6 (11.0-16.0) % Plt Count 373 (160-400) X10*3/uL MPV 9.8 (9.4-12.3) fL Immature Gran % (Auto) 0.6 H (0.0-0.4) % Neut % (Auto) 91.4 H (45-73) % Lymph % (Auto) 2.1 L (20-40) % Vernon % (Auto) 5.6 (2-11) % Eos % (Auto) 0.0 (0-4) % Baso % (Auto) 0.3 (0-2) % Lymph # (Auto) 0.4 L (1.2-4.9) X10*3/uL Vernon # (Auto) 1.1 (0.1-1.2) X10*3/uL Eos # (Auto) 0.0 (0.0-0.4) X10*3/uL Baso # (Auto) 0.1 (0.0-0.2) X10*3/uL Abs Immat Gran (auto) 0.13 H (0.00-0.03) X10*3/uL Absolute Neuts (auto) 18.5 H (2.0-8.3) x10*3/uL Absolute Nucleated RBC 0.000 (0.0-0.012) X10*3/uL Nucleated RBC % (auto) 0.0 (0.0-0.2) /100WBC Smear Tech's Comments VERIFIED Sodium 143 (135-145) mmol/L Potassium 3.7 (3.3-5.1) mmol/L Chloride 106 (96-108) mmol/L Carbon Dioxide 26 (22-29) mmol/L Anion Gap 15 (12-20) BUN 18 H (9-16) mg/dL Creatinine 0.59 (0.5-1.4) mg/dL Estim Creat Clear Calc 142.9 Estimated GFR > 60 Random Glucose 103 (60-115) mg/dL Lactic Acid 0.8 (0.5-2.0) mmol/L Calcium 9.2 (8.4-10.2) mg/dL Total Bilirubin 0.6 (0.0-1.0) mg/dL AST 25 (5-31) U/L ALT < 6 (0-31) U/L Alkaline Phosphatase 85 (39-117) U/L Total Protein 6.8 (6.5-8.0) g/dL Albumin 4.5 (3.5-5.0) g/dL Independent Interpretation I performed an independent interpretation of an: CT Scan (CT head negative for bleed. CT chest showed multiple rib fractures.) Radiology Impression Discussion of test interpretation with radiology: I discussed test interpretation with the radiologist and I have reviewed the radiologist's reading. Radiologist Impression: I discussed the CT finding with the radiologist Independent Historian Sister External Record Review External record reviewed: Office record and Outpatient record Chronic Conditions Parkinson's status post stimulator Social Determinants Patient?s care significantly limited by Social Determinants of Health including: Problems related to primary support group Critical Care Time Critical Care Time Critical Care Time: Yes Total Critical Care Time: 40 Attestation: I have personally provided 40 minutes of critical care time exclusive of time spent on separately billable procedures. ?Time includes review of lab data, radiology results, discussion with consultants, and monitoring for potential decompensation. ?Interventions were performed as documented above Discharge Plan Discharge Clinical Impression: Head injury, Closed rib fracture, Clavicle fracture Patient Disposition: General Acute Hospital Transfer Details: [facility] Prescriptions: No Action oxycodone-acetaminophen 5-325 mg tablet 1 tab PO Q6H PRN (Reason: pain) Qty: 5 0RF Rx Instructions: Partial Fill upon patient request. carbidopa 25 mg tablet 25 mg PO BID pramipexole 0.5 mg tablet PO gabapentin 300 mg capsule 300 mg PO BEDTIME carbidopa-levodopa 25-100 mg tablet 2 tab PO BID selegiline HCl 5 mg tablet 5 mg PO BID Print Language: Icelandic
[2025-05-18 17:36] LABS: Alanine Aminotransferase < 6 U/L (0-31); Albumin Level 4.5 g/dL (3.5-5.0); Alkaline Phosphatase 85 U/L (39-117); Anion Gap 15 (12-20); Aspartate Amino Transferase 25 U/L (5-31); Blood Urea Nitrogen 18 mg/dL (9-16); Calcium 9.2 mg/dL (8.4-10.2); Carbon Dioxide 26 mmol/L (22-29); Chloride 106 mmol/L (96-108); Creatinine Clr Calc Pharmacy 142.9; Estimated Glomerular Filt Rate > 60; Potassium 3.7 mmol/L (3.3-5.1); Sodium 143 mmol/L (135-145); Total Protein 6.8 g/dL (6.5-8.0)
[2025-05-18 17:55] VITALS: BP 128/66; PULSE 87; RESP 16; TEMP 36.4; O2SAT 97
--- NOTE | 2025-05-18 18:49 | PC.NURSE ---
Pt has hx of parkinsons, speech alerted at baseline. Around noon today pt tripped and fell down approx 7 stairs, no witnesses. +head hit and hit left side of body. Denying LOC or blood thinner use. Pt noted to have bruising and redness to left side of face (blue tint from a bag that had dye on it). Left shoulder appears dislocated, abrasion and bruising noted. Pt collared in triage. Pt is alert and oriented, breathing even and unlabored. Awaiting scans at this time. Pt reporting pain is less when not moving.
[2025-05-18 20:05] VITALS: BP 147/80; PULSE 90; RESP 16; TEMP 36.7; O2SAT 97
--- NOTE | 2025-05-18 20:19 | PC.NURSE ---
This RN assumed pt care @ 1900. Pt a&ox4, no signs of distress Pt reports 10/10 pain in left shoulder and back Pt medicated per mar Plan of care ongoing
--- NOTE | 2025-05-18 21:36 | PC.NURSE ---
This RN called in RN to RN report (Sherly) at [facility] @ [phone].
[2025-05-18 23:07] VITALS: BP 142/73; PULSE 82; RESP 19; TEMP -17.7; TEMP 0; O2SAT 98
--- NOTE | 2025-05-18 23:17 | PC.NURSE ---
Pt transferred to EMS stretcher, reporting pain and requesting pain medication before transport. Pt medicated as charted.
== END 2025-05-18 23:23 | disposition short-term general hospital (02) ==
PROVIDERS: Physician Assistant; Emergency Provider Emergency Medicine Emergency Medical Services; PCP Physician Assistant
DX: S22.39XA Fracture of one rib, unspecified side, initial encounter for closed fracture (principal); S42.009A Fracture of unspecified part of unspecified clavicle, initial encounter for closed fracture; S09.90XA Unspecified injury of head, initial encounter; G20.A1 Parkinson's disease without dyskinesia, without mention of fluctuations; W10.9XXA Fall (on) (from) unspecified stairs and steps, initial encounter; Y93.9 Activity, unspecified; Y92.9 Unspecified place or not applicable; Y99.9 Unspecified external cause status
CPT/HCPCS: 36415; 70450; 71250; 72125; 73030; 74176; 80053; 83605; 85025; 87040; 93005; 96361; 96374; 99284; 99285; J1171

== ENCOUNTER → 2025-05-18 16:33 | Outpatient (BNV) | payer MEDICAID, SELFPAY | PROVIDERS: Emergency Provider Emergency Medicine Emergency Medical Services; PCP Physician Assistant; Visit Provider Radiology Diagnostic Radiology | DX: N20.0 Calculus of kidney (principal); I70.0 Atherosclerosis of aorta; S42.002A Fracture of unspecified part of left clavicle, initial encounter for closed fracture; S22.42XA Multiple fractures of ribs, left side, initial encounter for closed fracture; I25.10 Atherosclerotic heart disease of native coronary artery without angina pectoris; M50.322 Other cervical disc degeneration at C5-C6 level; M47.812 Spondylosis without myelopathy or radiculopathy, cervical region; M85.812 Other specified disorders of bone density and structure, left shoulder; Z04.3 Encounter for examination and observation following other accident | CPT/HCPCS: 70450; 71250; 72125; 73030; 74176 ==

== ENCOUNTER → 2025-05-18 16:35 | Outpatient (BNV) | payer MEDICAID, SELFPAY | PROVIDERS: Emergency Provider Emergency Medicine Emergency Medical Services; PCP Physician Assistant; Visit Provider Internal Medicine | DX: I45.10 Unspecified right bundle-branch block (principal) | CPT/HCPCS: 93010 ==